=== PATIENT | female | born 1985 | race Caucasian/White ===

== ENCOUNTER 2018-02-20 16:35 | Emergency (ER) | payer BC, OTHER ==
[~2018-02-20] VITALS: Ht 170.2 cm; Wt 121.2 kg
[~2018-02-20 16:35] MED LIST: BCPILLS PO
[2018-02-20 16:49] VITALS: TEMP 36.7; Ht 170.2 cm; Wt 121.2 kg
[2018-02-20] MEDS ORDERED: OMEP20TA PO (17:38)
[2018-02-20 17:40] LABS: BASO % 0.4 %; BASO ABS # 0.03 K/uL (0-0.2); EOS % 2.1 %; EOS ABS # 0.16 K/uL (0-0.5); HEMATOCRIT 41.6 % (37-47); HEMOGLOBIN 14.3 g/dL (12.0-16.0); IG# 0.01 K/uL (0.00-0.02); LYMPH % 37.5 %; LYMPH ABS # 2.91 K/uL (1.2-3.4); MEAN CELL VOLUME 79.8 fL (80-100); MEAN CORPUSCULAR HEMOGLOBIN 27.4 pg (25-34); MEAN CORPUSCULAR HGB CONC 34.4 g/dl (32-36); MONO % 7.9 %; MONO ABS # 0.61 K/uL (0.11-0.59); NEUT ABS # 4.04 K/uL (1.4-6.5); PLATELET COUNT 307 K/uL (130-400); RED CELL DISTRIBUTION WIDTH CV 13.2 % (11.5-14.5); RED CELL DISTRIBUTION WIDTH SD 38.4 fL (36.4-46.3); WHITE BLOOD COUNT 7.76 K/uL (4.8-10.8)
--- NOTE | 2018-02-20 17:59 | DIAGNOSTIC IMAGING REPORT ---
C-SPINE ROUTINE 4 OR 5 VIEWS CLINICAL HISTORY: Neck pain COMPARISON STUDY: 01/13/2013 FINDINGS: There is slight straightening of normal cervical lordosis. The prevertebral soft tissues are normal. No fractures or subluxations are visualized. IMPRESSION: Slight straightening of the normal cervical lordosis. Otherwise unremarkable conventional radiographic evaluation of the cervical spine Electronically signed by: Xiang Lewis M.D. 02/20/2018 5:58 PM Dictated Date/Time: 02/20/2018 5:57 PM
[2018-02-20 18:22] LABS: CALCIUM 8.8 mg/dl (8.5-10.1); CREATININE 0.77 mg/dl (0.60-1.20)
[2018-02-20 18:42] VITALS: BP 142/88; PULSE 78; O2SAT 97
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
== END 2018-02-20 18:44 | disposition home or self-care (01) ==
LOC: C.EDB 16:36 → C.EDD 18:44
DX: M54.12 Radiculopathy, cervical region (principal); M40.50 Lordosis, unspecified, site unspecified; Z86.19 Personal history of other infectious and parasitic diseases; Z87.891 Personal history of nicotine dependence